=== PATIENT | male | born 2000 | race Caucasian/White ===

== ENCOUNTER 2023-08-19 19:37 | Emergency (ER) | payer MEDICAID ==
[~2023-08-19] VITALS: Ht 175.3 cm; Wt 77.1 kg
[2023-08-19] MEDS ORDERED: IBUPROFEN 600 MG TABLET ONE (20:34)
[2023-08-19] MEDS ORDERED: ACETAMINOPHEN 325 MG TABLET ONE (20:34)
[2023-08-19] MEDS: ACETAMINOPHEN 325 MG TABLET PO ONE (20:37)
[2023-08-19] MEDS: IBUPROFEN 600 MG TABLET PO ONE (20:37)
[2023-08-19 22:18] VITALS: BP 125/81; TEMP 98; O2SAT 99
== END 2023-08-19 22:18 | disposition home or self-care (01) ==
LOC: ER 19:38
DX: S52.592A Other fractures of lower end of left radius, initial encounter for closed fracture (principal); W01.0XXA Fall on same level from slipping, tripping and stumbling without subsequent striking against object, initial encounter; Y93.89 Activity, other specified; Y92.89 Other specified places as the place of occurrence of the external cause; Y99.8 Other external cause status
CPT/HCPCS: 73080-TC; 73110